=== PATIENT | female | born 1950 | race Caucasian/White ===

== ENCOUNTER 2018-05-10 19:45 | Inpatient (IN) ==
--- NOTE | 2018-05-10 20:36 | DR.GENAD ---
HPI Time Seen Time Seen by Provider: 05/10/18 20:36 PCP Primary Care Physician: KELLY HPI Comment HPI Comment: HISTORY BELOW. Complaint/Symptoms Chief Complaint Doctors Comments: RAPID HEART RATE WITH DIZZINESS. HISTORY A FIB, TAKES XARELTO. PREVIOUS CARDIOVERSION FOR A FIB. Chief Complaint:: AFIB Self Treatment fo Chief Complaint: TAKES XARELTO 5.5 DAILY. Nurses notes reviewed Nurses Notes Review: Yes Source History Provided: Patient Mode of Arrival Mode of Arrival: Ambulatory Timing Onset of Chief Complaint: 05/09/18 Came on: Suddenly Duration Duration: Constant Duration: Days Severity Severity: Moderate Modifying Factors Worsens:: WITH PALPITATION Improves:: WITH NORMAL PULSE RATE. Associated Signs and Symptoms Associated Signs and Symptoms: DIZZINESS Other History Other History: HISTORY A FIB. PMH PMH Past Medical History: Yes Past Medical History: Diabetes and MD Past Medical History Comment: AFIB, Past Surgical History: Yes Surgical History: Appendectomy, Cholecystectomy and Hysterectomy Past Surgical History Comment: TUBAL, OPEN HEART, Family History History of Family Medical Conditions: No Family Medical History: MD and Coronary Artery Disease Social History Does patient currently use any type of tobacco product: No Have you used tobacco products in the last 12 months: No Type of Tobacco Use: None Does any household member use tobacco: No Alcohol Use: None Do you use any recreational Drugs:: No Lives With: Alone Lives Where: Home infectious screening In the last 2 months have you had wt loss of >10#?: NO Have you had fever, night sweats or hemotysis?: No Have you traveled outside the country in the last 6 months?: No Isolation: Standard ROS Review of Systems Constitutional: Weakness and Fatigue Eyes: No Symptoms Reported ENTM: No Symptoms Reported Respiratoy: Short of Breath Cardiovascular: No Symptoms Reported Gastrointestinal/Abdominal: No Symptoms Reported Genitourinary: No Symptoms Reported Neurological: Weakness and Dizziness Musculoskeletal: No Symptoms Reported Integumentary: No Symptoms Reported Hematologic/Lymphatic: No Symptoms Reported Endocrine: No Symptoms Reported Psychiatric: No Symptoms Reported All Other Systems: Reviewed and Negative PE Vital Signs Vitals: Temperature 98.7 F Pulse Rate [Left] 139 Pulse Rate 163 Respiratory Rate 22 Blood Pressure [Right Arm] 157/90 Blood Pressure 115/78 O2 Sat by Pulse Oximetry 98 General Limitations: No Limitations General Appearance: Alert and In No Apparent Distress Head Head Exam: Normal Inspection Eyes Eye exam: Normal Appearance, PERRL and EOMI; negative Scleral Icterus and Conjunctival Injection ENT ENT Exam: Normal External Ear Exam External Ear Exam: Normal External Inspection TM/Canal Exam: Bilateral: Normal Nose Exam: Normal Nose Exam Mouth Exam: Normal Inspection Throat Exam: Normal Inspection Neck Neck Exam: Trachea Midline; negative Tenderness, Meningismus and Lymphadenopathy Chest Chest Inspection: Symmetric Chest Wall Rise Respiratory Respiratory Exam: Normal Lung Sounds Bilat Respiratory Exam: Bilateral: Clear to Auscultation Cardiovascular Cardiovascular Exam: Tachycardia and Irregular Rhythm Abdominal Exam Abdominal Exam: Normal Inspection, Normal Bowel Sounds and Soft Extremities Extremities Exam: Normal Inspection Back Back Exam: Normal Inspection Neurologic Neurological Exam: Alert and Oriented X3; negative Motor Sensory Deficit Psychiatric Psychiatric Exam: Normal Affect and Normal Mood Skin Skin Exam: Warm, Dry, Intact and Normal Color MDM Additional Information Additional Information Obtained From: Family Differential Diagnosis Differential Diagnosis: A FIB WITH RVR, DIZZINESS. COURSE Treatment Treatment: SEE ORDERS. CARDIOZEM DRIP STARTED IN ED. Consultation Consultation Comments: DISCUSS PATIENT WITH DR. LAU. HE WILL ADMIT PATIENT. Education/Counseling Education/Counseling: Patient and Family Educated On: Diagnosis ROR Labs Reviewed Laboratory Results Reviewed?: Yes Result Diagrams: 05/10/18 20:40 05/10/18 20:40 Laboratory: WBC 8.3 X10^3/uL (3.6-10.0) 05/10/18 20:40 RBC 4.71 X10^6/uL (3.5-5.4) 05/10/18 20:40 Hgb 13.6 g/dL (12.0-16.0) 05/10/18 20:40 Hct 39.8 % (36.0-47.0) 05/10/18 20:40 MCV 84.6 fL (80.0-100.0) 05/10/18 20:40 MCH 28.9 pg (27.0-34.0) 05/10/18 20:40 MCHC 34.1 g/dL (33.0-35.0) 05/10/18 20:40 RDW 13.7 % (11.6-16.5) 05/10/18 20:40 Plt Count 162 X10^3/uL (150.0-450.0) 05/10/18 20:40 MPV 10.9 fL (7.4-11.0) 05/10/18 20:40 Neut % (Auto) 64.6 % (42.0-75.0) 05/10/18 20:40 Lymph % (Auto) 23.8 % (21.0-51.0) 05/10/18 20:40 Wells % (Auto) 8.3 % (0.0-13.0) 05/10/18 20:40 Eos % (Auto) 2.3 % (0.9-2.9) 05/10/18 20:40 Baso % (Auto) 1.0 % (0.2-1.0) 05/10/18 20:40 Neut # (Auto) 5.3 x10^3/uL (2.2-4.8) H 05/10/18 20:40 Lymph # (Auto) 2.0 X10^3/uL (1.3-2.9) 05/10/18 20:40 Wells # (Auto) 0.7 x10^3/uL (0.3-0.8) 05/10/18 20:40 Eos # (Auto) 0.2 x10^3/uL (0.0-0.2) 05/10/18 20:40 Baso # (Auto) 0.1 X10^3/uL (0.0-0.1) 05/10/18 20:40 Absolute Nucleated RBC 0.0 /100WBC 05/10/18 20:40 Sodium 139 mmol/L (136-145) 05/10/18 20:40 Corrected Sodium 145 mmol/L (136-145) 05/10/18 20:40 Potassium 3.9 mmol/L (3.5-5.1) 05/10/18 20:40 Chloride 104 mmol/L (98-107) 05/10/18 20:40 Carbon Dioxide 23.7 mmol/L (21-32) 05/10/18 20:40 BUN 18 mg/dL (7-18) 05/10/18 20:40 Creatinine 0.89 mg/dL (0.55-1.02) 05/10/18 20:40 Est GFR (MDRD) Af Amer > 60 (>60) 05/10/18 20:40 Est GFR (MDRD) Non-Af > 60 (>60) 05/10/18 20:40 Glucose 338 mg/dL (65-99) H 05/10/18 20:40 Calcium 9.3 mg/dL (8.5-10.1) 05/10/18 20:40 Corrected Calcium TNP 05/10/18 20:40 Total Bilirubin 0.30 mg/dL (0.2-1.0) 05/10/18 20:40 AST 27 Units/L (15-37) 05/10/18 20:40 ALT 23 Units/L (12-78) 05/10/18 20:40 Alkaline Phosphatase 97 Units/L (46-116) 05/10/18 20:40 Creatine Kinase 91 Units/L (26-192) 05/10/18 20:40 CK-MB (CK-2) < 1.0 ng/mL (0-4.0) 05/10/18 20:40 CK/CKMB % Calc 1.1 % (<4) 05/10/18 20:40 Troponin I 0.15 ng/mL (0-1.5) 05/10/18 20:40 Total Protein 7.0 g/dL (6.4-8.2) 05/10/18 20:40 Albumin 3.5 g/dL (3.4-5.0) 05/10/18 20:40 Globulin 3.5 g/dL (2.5-4.5) 05/10/18 20:40 Albumin/Globulin Ratio 1.0 Ratio (1.1-2.1) L 05/10/18 20:40 EKG Rate: 147 Rhythm: Afib (WITH RVR, RATE 147) Block: RBBB ST: Old, Ant, Lat and Infarct
[2018-05-10 20:50] LABS: BASOPHILS # (AUTO) 0.1 X10^3/uL (0.0-0.1); EOSINOPHILS # (AUTO) 0.2 x10^3/uL (0.0-0.2); EOSINOPHILS % (AUTO) 2.3 % (0.9-2.9); HEMATOCRIT 39.8 % (36.0-47.0); HEMOGLOBIN 13.6 g/dL (12.0-16.0); LYMPHOCYTES % (AUTO) 23.8 % (21.0-51.0); MEAN CORPUSCULAR HEMOGLOBIN 28.9 pg (27.0-34.0); MEAN CORPUSCULAR HGB CONC 34.1 g/dL (33.0-35.0); MEAN CORPUSCULAR VOLUME 84.6 fL (80.0-100.0); MEAN PLATELET VOLUME 10.9 fL (7.4-11.0); MONOCYTES # (AUTO) 0.7 x10^3/uL (0.3-0.8); MONOCYTES % (AUTO) 8.3 % (0.0-13.0); NEUTROPHILS # (AUTO) 5.3 x10^3/uL (2.2-4.8); NEUTROPHILS % (AUTO) 64.6 % (42.0-75.0); PLATELET COUNT 162 X10^3/uL (150.0-450.0); RED BLOOD COUNT 4.71 X10^6/uL (3.5-5.4); RED CELL DISTRIBUTION WIDTH 13.7 % (11.6-16.5); WHITE BLOOD COUNT 8.3 X10^3/uL (3.6-10.0)
[2018-05-10] MEDS ORDERED: TOPROL XL PO ONE (20:52)
[2018-05-10] MEDS: TOPROL XL PO SCH (20:59)
[2018-05-10 21:07] LABS: BLOOD UREA NITROGEN 18 mg/dL (7-18); CALCIUM 9.3 mg/dL (8.5-10.1); CARBON DIOXIDE 23.7 mmol/L (21-32); CHLORIDE 104 mmol/L (98-107); COR NA(FOR HYPERGLY) 145 mmol/L (136-145); CREATININE 0.89 mg/dL (0.55-1.02); SODIUM 139 mmol/L (136-145); TROPONIN I 0.15 ng/mL (0-1.5); eGFR NON BLACK RACES > 60 (>60)
[2018-05-10 21:11] LABS: ALANINE AMINOTRANSFERASE 23 Units/L (12-78); ALBUMIN 3.5 g/dL (3.4-5.0); ALKALINE PHOSPHATASE 97 Units/L (46-116); ASPARTATE AMINO TRANSFERASE 27 Units/L (15-37); CKMB % 1.1 % (<4); CREATINE KINASE 91 Units/L (26-192); CREATINE KINASE MB < 1.0 ng/mL (0-4.0)
[2018-05-10] MEDS ORDERED: CARDIZEM SR 120 MG PO ONE (23:02)
[2018-05-10] MEDS ORDERED: CARDIZEM INJ 50 MG VIAL IVP ONE (23:09)
[2018-05-10] MEDS ORDERED: CARDIZEM INJ 125 MG VIAL 125 MG in NS 100 ML IV 100 ML IV PRN (23:09)
[2018-05-10] MEDS ORDERED: NS 100 ML IV 100 ML IV ONE (23:15)
[2018-05-10] MEDS ORDERED: CARDIZEM INJ 125 MG VIAL ONE (23:16)
[2018-05-10] MEDS ORDERED: NS 1000 ML 1,000 ML ONE (23:30)
[2018-05-10] MEDS ORDERED: NS 1000 ML 1,000 ML IV SCH (23:45)
[2018-05-11] MEDS: CARDIZEM INJ 125 MG VIAL 125 MG in NS 100 ML IV 100 ML IV PRN ×2 (00:08→11:07)
[2018-05-11 00:28] VITALS: BMI 30.2
[2018-05-11] MEDS ORDERED: RESTORIL CAP 15 MG PO PRN (00:44)
[2018-05-11] MEDS ORDERED: RESTORIL CAP 15 MG PO ONE (00:48)
[2018-05-11] MEDS ORDERED: HumuLIN R ONE (01:03)
[2018-05-11] MEDS: HumuLIN R SUBCUT PRN ×2 (01:11→17:06)
[2018-05-11 01:35] LABS: BILIRUBIN,URINE NEGATIVE (NEGATIVE); BLOOD/HEMOGLOBIN,URINE 1+ (NEGATIVE); GLUCOSE, URINE 4+ (NEGATIVE); KETONES,URINE 3+ (NEGATIVE); LEUKOCYTE ESTERASE ,URINE 1+ (NEGATIVE); NITRITES,URINE NEGATIVE (NEGATIVE); PROTEIN,URINE 1+ (NEGATIVE); UROBILINOGEN,URINE NORMAL (NORMAL)
[2018-05-11 01:51] LABS: APPEARANCE,URINE SLIGHTLY HAZY (CLEAR); COLOR,URINE PALE YELLOW (YELLOW)
[2018-05-11 01:52] LABS: BACTERIA,URINE NEGATIVE /HPF (NEGATIVE); RBC,URINE 0-2 /HPF (NONE SEEN); SQUAMOUS EPITHELIAL CELL,UR FEW /HPF (NEGATIVE)
[2018-05-11 01:53] LABS: YEAST,URINE RARE /HPF (NEGATIVE)
--- NOTE | 2018-05-11 02:34 | RAD ---
Chest, one view Indication: Shortness of breath, atrial fibrillation Comparison: 01/22/2012 Findings: The heart is mildly enlarged without congestive failure. Prior median sternotomy noted. No focal infiltrate, significant effusion or pneumothorax is identified. There is no acute osseous abnormality. Impression: Mild cardiomegaly without acute chest process. Reported By:
[2018-05-11 06:11] LABS: BASOPHILS # (AUTO) 0.1 X10^3/uL (0.0-0.1); BASOPHILS % (AUTO) 0.8 % (0.2-1.0); EOSINOPHILS # (AUTO) 0.2 x10^3/uL (0.0-0.2); EOSINOPHILS % (AUTO) 3.1 % (0.9-2.9); HEMATOCRIT 36.7 % (36.0-47.0); HEMOGLOBIN 12.6 g/dL (12.0-16.0); LYMPHOCYTES # (AUTO) 1.8 X10^3/uL (1.3-2.9); LYMPHOCYTES % (AUTO) 24.2 % (21.0-51.0); MEAN CORPUSCULAR HGB CONC 34.3 g/dL (33.0-35.0); MEAN CORPUSCULAR VOLUME 84.6 fL (80.0-100.0); MONOCYTES # (AUTO) 0.6 x10^3/uL (0.3-0.8); MONOCYTES % (AUTO) 7.6 % (0.0-13.0); NEUTROPHILS # (AUTO) 4.8 x10^3/uL (2.2-4.8); NEUTROPHILS % (AUTO) 64.3 % (42.0-75.0); PLATELET COUNT 142 X10^3/uL (150.0-450.0); RED BLOOD COUNT 4.34 X10^6/uL (3.5-5.4); RED CELL DISTRIBUTION WIDTH 13.8 % (11.6-16.5); WHITE BLOOD COUNT 7.5 X10^3/uL (3.6-10.0)
[2018-05-11 06:24] LABS: ALANINE AMINOTRANSFERASE 21 Units/L (12-78); ALBUMIN 3.1 g/dL (3.4-5.0); ALKALINE PHOSPHATASE 82 Units/L (46-116); ASPARTATE AMINO TRANSFERASE 13 Units/L (15-37); BLOOD UREA NITROGEN 17 mg/dL (7-18); CALCIUM 8.5 mg/dL (8.5-10.1); CHLORIDE 106 mmol/L (98-107); COR CA(FOR HYPOALB) 9.2 mg/dL (8.5-10.1); COR NA(FOR HYPERGLY) 145 mmol/L (136-145); CREATININE 0.67 mg/dL (0.55-1.02); MAGNESIUM 1.8 mg/dL (1.7-2.9); SODIUM 142 mmol/L (136-145); TOTAL PROTEIN 6.4 g/dL (6.4-8.2); eGFR NON BLACK RACES > 60 (>60)
[2018-05-11 06:26] LABS: CKMB % 2.1 % (<4); CREATINE KINASE 48 Units/L (26-192); CREATINE KINASE MB < 1.0 ng/mL (0-4.0); TROPONIN I 0.19 ng/mL (0-1.5)
[2018-05-11] MEDS ORDERED: POTASSIUM CHL 60 MEQ/NS 0.45% 500 ML IV PRN (08:46)
[2018-05-11] MEDS ORDERED: MICRO K EXTEN CAP 10 MEQ PO PRN (08:46)
[2018-05-11] MEDS ORDERED: POTASSIUM CHL 40 MEQ/NS 0.45% 500 ML IV PRN (08:46)
[2018-05-11] MEDS ORDERED: POTASSIUM CHLORIDE LIQ 20 MEQ UDC PO PRN (08:46)
[2018-05-11] MEDS ORDERED: KLOR-CON PO PRN (08:46)
[2018-05-11] MEDS ORDERED: K-RIDER 10 MEQ/NS 100 ML 10 MEQ/100 ML BAG IV PRN (08:46)
[2018-05-11] MEDS ORDERED: K-DUR TAB 20 MEQ PO PRN (08:46)
[2018-05-11] MEDS ORDERED: XARELTO PO SCH (09:00)
[2018-05-11] MEDS ORDERED: MAGNESIUM SULFATE 1 GRAM/100 mL PREMIX 2 G/200 ML BAG IV ONE (09:19)
[2018-05-11] MEDS ORDERED: K-DUR TAB 20 MEQ PO ONE (09:19)
[2018-05-11] MEDS: MAGNESIUM SULFATE 1 GRAM/100 mL PREMIX 1 GM/100 ML BAG IV PRN ×2 (09:24→11:09)
[2018-05-11] MEDS ORDERED: RIVAROXABAN PO SCH (09:30)
[2018-05-11] MEDS: TOPROL XL PO SCH (09:33)
[2018-05-11] MEDS ORDERED: ACTOS PO SCH (10:15)
[2018-05-11] MEDS ORDERED: COREG TAB 12.5 MG PO SCH (11:00)
[2018-05-11] MEDS ORDERED: GLUCOPHAGE XR PO SCH (11:00)
--- NOTE | 2018-05-11 16:01 | RAD ---
History: Atrial fib Study: PA and lateral chest Comparison: Today at 1:18 a.m. Findings: The heart is prominent status post median sternotomy. There is diffuse increased interstitial lung disease. There is no focal lung consolidation and there is no definite edema or pleural effusion. Impression: No definite acute cardiopulmonary disease Reported By:
[2018-05-11] MEDS ORDERED: LOPRESSOR INJ 5 MG AMP IVP ONE (17:08)
[2018-05-11 18:29] VITALS: BP 114/63
[2018-05-11] MEDS ORDERED: SNACK - Diabetic Appropriate PO SCH ×2 (20:00)
[2018-05-11] MEDS ORDERED: COREG TAB 25 MG PO SCH (21:00)
[2018-05-11] MEDS ORDERED: ELIQUIS PO SCH (21:00)
[2018-05-11] MEDS ORDERED: CARDIZEM SR 120 MG PO ONE (23:01)
[2018-05-12] MEDS ORDERED: VICTOZA SC SCH (09:00)
== END 2018-05-11 18:55 | disposition short-term general hospital (02) | DRG 310 ==
LOC: ER 19:46 → ICU 23:53
PROVIDERS: ADMIT Obstetrics & Gynecology Obstetrics; ATTEND Obstetrics & Gynecology Obstetrics
DX: R42 Dizziness and giddiness; I48.91 Unspecified atrial fibrillation; R00.0 Tachycardia, unspecified; R06.02 Shortness of breath; E11.65 Type 2 diabetes mellitus with hyperglycemia
CPT/HCPCS: 36415; 71010; 71020; 71045; 71046; 80053; 81001; 82550; 82553; 83735; 84484; 85025; 85610; 85730; 87086; 93005; 93041; 96365; 96374; 96375; 99282; 99285; A4222; J1815; J3475; J3490; J7030; J7050